=== PATIENT | male | born 1950 | race Two or more races ===

== ENCOUNTER 2020-03-05 08:41 | Outpatient (CLI) | payer OTHER | END 2020-03-05 08:48 | disposition home or self-care (01) | LOC: LAB 08:41 | PROVIDERS: ATTEND Urology | DX: R97.20 Elevated prostate specific antigen [PSA] (principal); B96.29 Other Escherichia coli [E. coli] as the cause of diseases classified elsewhere ==

== ENCOUNTER 2020-03-13 07:23 | Outpatient (CLI) | payer OTHER | END 2020-03-13 07:29 | disposition home or self-care (01) | LOC: SONOGRAMA 07:23 | PROVIDERS: ATTEND Urology | DX: R97.20 Elevated prostate specific antigen [PSA] (principal); D29.1 Benign neoplasm of prostate; C61 Malignant neoplasm of prostate ==